=== PATIENT | female | born 1970 | race Caucasian/White ===

== ENCOUNTER 2023-12-18 23:01 | Emergency (ER) | payer OTHER, SELFPAY ==
[2023-12-18 23:04] VITALS: BP 148/78
--- NOTE | 2023-12-18 23:37 | ED.GENMED ---
History of Present Illness
General
Chief Complaint: Breathing Problem
Source: patient
Exam Limitations: none
Time Seen by Provider: 12/18/23 23:11
Travel History
Have you had any contact with someone who has COVID-19?: No
Do you have any symptoms of coronavirus? Fever > 100 degrees, chills, cough, shortness of breath, sore throat, loss of taste or smell, muscle aches, or headache?: No
History of Present Illness
History of Present Illness:
This is a 53 year old female that comes in with multiple complaints. States that her dad just recently . State that for the past 5-7 days she has had chest pain. States that she was taking Valerian root at first and this seemed to help
but now it has stopped helping. States that she is having night sweats and then chills and the sweats that she has to change her sheets. Sates that she also feels SOB. State that she had nausea and vomited a little today with diarrhea. States that
she had a headache yesterday. Denies any fever, abd pain, dizziness, urinary burning.
Past History
Past History
ED Past Medical History: Cancer (Liver cancer diagnosed and treated 1999. No recurrence. Chemo), Psychiatric (Depression) and Other (Celiac disease, )
ED Past Surgical History: Cholecystectomy, Gynecological (Uterine polyp removed, ) and Other ( 2/3 of Liver resected cancer removal 1999)
Social History
Tobacco: Vaping
Alcohol: Occasional
Personal:
Living: with family
Review of Systems
Review of Systems
All Other Systems: ROS reviewed and negative except as documented in HPI and ROS
Constitutional: Reports night sweats and chills; Denies fever
EENT: Reports no symptoms
Respiratory: Reports trouble breathing; Denies cough
Cardiac: Reports chest pain
ABD/GI: Reports nausea, vomiting and diarrhea; Denies abdominal pain
: Reports no symptoms; Denies dysuria, frequency or urgency
Musculoskeletal: Reports no symptoms
Skin: Reports no symptoms
Neurological: Reports headache (Yesterday); Denies dizzy
Psychiatric: Reports no symptoms
Phy Exam
General Physical Exam
General Presentation: no apparent distress
General age: appears stated age
General Skin: warm and dry
General Habitus: normal
General Mental: alert
General Hydration: appears well hydrated
ENT Exam
ENT Exam: TM's normal, pharynx normal and neck supple
Eye Exam
Eye Exam: EOMI
Cardiovascular Exam
Cardiovascular Exam: regular rate/rhythm, no edema, no murmur and normal peripheral pulses
Pulmonary Exam
Pulmonary Exam: lungs clear, no respiratory distress, no rales, chest non tender, no crackles, no rhonchi, no wheezing and no cough
Gastrointestinal Exam
Gastrointestinal Exam: normal bowel sounds, non tender, soft, no organomegaly, no pulsatile mass and non distended
Musculoskeletal Exam
Musculoskeletal Exam: full ROM and no edema
Skin Exam
Skin Exam: normal color, warm/dry, no rash and no petechia
Psychiatric Exam
Psychiatric Exam: normal mood/affect
Scores
Heart Failure Risk
Heart Failure Risk Score: Not Applicable
Course
Orders/Labs/Results
Orders:
Orders
12/18/23 23:07
Electrocardiogram (*1) Urgent
Reason for Study: Shortness of Breath
EKG- Treatment ONCE
CMP [Comprehensive Metabolic Panel] Urgent
Complete Blood Count/With Diff Urgent
12/18/23 23:36
D-Dimer Urgent
CR Chest - 2 Views Urgent
Comment:
Reason For Exam: Chest pain
12/18/23 23:39
COVID-19 Antigen Urgent
Source: Nasal Swab
12/19/23 00:11
Troponin I Q3H
12/19/23 02:20
Troponin I Urgent
Abnormal Lab Results
12/19/23
00:11
RBC 3.94 L 10^6/uL
(4.20-5.40)
Hgb 11.9 L g/dL
(12.0-16.0)
Hct 35.1 L %
(37.0-47.0)
12/19/23 00:11
12/19/23 00:11
H/H slightly low but improved from prior labs. COVID negative, D-dimer 0.50, Troponin <0.012
Second Troponin <0.012
Vital Signs
Initial and Last Documented VS:
Initial Vital Signs
Temp Pulse Resp BP Pulse Ox
97.8 F 78 18 148/78 100
12/18/23 23:04 12/18/23 23:04 12/18/23 23:04 12/18/23 23:04 12/18/23 23:04
Last Documented Vital Signs
Temp Pulse Resp BP Pulse Ox
97.8 F 76 18 144/79 98
12/18/23 23:04 12/19/23 00:45 12/19/23 00:45 12/19/23 00:10 12/19/23 00:45
MDM/Problems Addressed
Differential Diagnosis Includes:
Anxiety, Viral syndrome. COVID
MDM/Problems Addressed:
This is a 53 year old female that comes in with multiple complaints. States that her dad just and for the past 5-7 days she has had chest pain, SOB, night sweats. States that she was taking Valerian root and this helped at first but now
is not helping.
Will check labs, chest x-ray.
Back into see patient. Explained that her blood work is normal along with her chest X-ray. Troponin is normal. Will repeat Troponin and if normal will discharge home. Explained that this may be a combination of some anxiety and a viral syndrome.
Patient to follow up with the family doctor. Increase her water intake to 8-8oz glasses daily. Return with any concerns.
Chronic conditions affecting care: Cancer
Acute Exacerbation and/or Progression of Chronic Illness:
NA
*Radiology
Radiology exam reviewed: preliminary read by ED provider (Chest- Negative for active disease. )
*Pulse Oximetry
Patient hypoxic: no
*EKG
Interpreted by ED Provider?: Yes
Heart Rate: 76
Rate: normal
Rhythm: sinus
[place]: normal axis
Interval: normal interval
QRS Pattern: normal QRS
Ischemia: no ischemia
*Critical Care Note
Total Time (30-74mins, 75-104mins- exclusive of procedures): Not Applicable
ED Attending Note
-
Portions of this chart may have been created with voice recognition software.� Occasional wrong word or��sound alike� substitutions may have occurred due to the inherent limitations of voice recognition software.
Discharge Plan
Departure
Patient Disposition: Home (Routine Discharge)
Date of Disposition: 12/19/23
Time of Disposition: 03:17
Patient with high blood pressure during this ER visit?: Yes
Condition: Good
Covid-19: Negative COVID-19
Discharge Problem:
Chest pain, Viral syndrome
Instructions: Viral Syndrome (DC), Chest Pain PCP Follow Up, BLOOD PRESSURE
Prescriptions:
No Action
No Current Medications
0
Referrals:
UNKNOWN - PT DOES,NOT KNOW [Unknown Provider] -
Activity Restrictions/Additional Instructions:
As discussed, your blood work is normal. You are negative for COVID and your chest x-ray is normal. This may be a combination of some anxiety and a viral syndrome. Please increase your water intake to 8-8oz glasses daily. Follow up with the family
doctor for recheck. IF YOU HAVE INCREASED OR CHANGING PAIN, OR YOU HAVE ANY OTHER CONCERNS PLEASE RETURN TO THE EMERGENCY ROOM.
Interventions
Interventions:
*Risk Screen - Suicide Last Done: 12/18/23 23:04
*Neglect/Abuse Screening Last Done: 12/18/23 23:04
ED- Fall Risk Assessment Last Done: 12/18/23 23:52
ED- Cardiac Assessment Last Done: 12/18/23 23:52
ED- Pulmonary Assessment Last Done: 12/18/23 23:52
[2023-12-18 23:55] VITALS: BP 131/79
[2023-12-19 00:10] VITALS: BP 144/79
[2023-12-19 00:27] LABS: % Basophils 0.4 % (0-2); % Eosinophils 0.3 % (0-6); % Immature Granulocytes 0.5 % (0-0.5); % Lymphocytes 33.7 % (20.5-51.1); % Monocytes 5.9 % (1.7-9.3); % Neutrophils 59.2 % (42.2-75.2); Absolute Lymphocytes 2.6 10^3/uL (1.2-3.4); Absolute Monocytes 0.5 10^3/uL (0.1-0.6); Absolute Neutrophils 4.5 10^3/uL (1.4-6.5); Hematocrit 35.1 % (37.0-47.0); Hemoglobin 11.9 g/dL (12.0-16.0); Mean Corp Hgb Conc. 33.9 g/dL (33.0-37.0); Mean Corpuscular Hgb 30.2 pg (27.0-31.0); Mean Corpuscular Volume 89.1 fL (81.0-99.0); Mean Platelet Volume 10.4 fL (7.4-10.4); Nucleated Red Blood Cells % 0 %; Platelet Count 247 10^3/uL (130-400); Red Blood Cell Count 3.94 10^6/uL (4.20-5.40); Red Cell Dist. Width 13.2 % (11.5-14.5); White Blood Cell Count 7.6 10^3/uL (4.8-10.8)
[2023-12-19 00:33] LABS: COVID-19 Antigen Negative (Negative)
[2023-12-19 00:35] LABS: ALT (SGPT) 24 U/L (0-35); AST (SGOT) 33 U/L (14-36); Albumin 4.5 g/dl (3.5-5.0); Alkaline Phosphatase 80 U/L (38-126); Blood Urea Nitrogen 17 mg/dl (7-17); Calcium 9.2 mg/dl (8.4-10.2); Carbon Dioxide 25 mmol/L (22-30); Chloride 104 mmol/L (98-107); Glucose 95 mg/dl (70-99); Sodium 135 mmol/L (135-145); Total Bilirubin 0.9 mg/dl (0.2-1.3); Total Protein 7.1 g/dl (6.3-8.2); eGFR > 60.00
[2023-12-19 00:46] LABS: Troponin I < 0.012 ng/ml
[2023-12-19 01:00] VITALS: BP 118/71
[2023-12-19 02:00] VITALS: BP 101/53
[2023-12-19 03:00] VITALS: BP 90/60
[2023-12-19 03:15] LABS: Troponin I < 0.012 ng/ml
== END 2023-12-19 03:20 | disposition home or self-care (01) ==
LOC: EMR 23:01
PROVIDERS: Clinical Nurse Specialist Family Health; Emergency Medicine; EMERGENCY PHYSICIAN Emergency Medicine; FAMILY PHYSICIAN Family Medicine
DX: B34.9 Viral infection, unspecified (principal); R07.9 Chest pain, unspecified; R03.0 Elevated blood-pressure reading, without diagnosis of hypertension; F17.290 Nicotine dependence, other tobacco product, uncomplicated; Z11.52 Encounter for screening for COVID-19; Z63.4 Disappearance and death of family member
CPT/HCPCS: 99285; 71046; 80053; 84484; 85025; 85379; 87811; 93005